=== PATIENT | female | born 1990 | race Caucasian/White ===

== ENCOUNTER 2017-10-28 20:00 | Inpatient (IN) | payer OTHER ==
[~2017-10-28] VITALS: Ht 160 cm; Wt 80.0 kg
[2017-10-28 21:43] VITALS: Ht 160 cm; Wt 80.0 kg
[2017-10-28 21:44] VITALS: BP 133/97; PULSE 102; RESP 16
[2017-10-28] MEDS ORDERED: METHYLERGONOVINE 0.2 MG INJ IM PRN (22:00)
[2017-10-28] MEDS ORDERED: MISOPROSTOL 200 MCG TAB PR PRN (22:00)
[2017-10-28] MEDS ORDERED: AMPICILLIN 2 GM/NS (PMX) 100 ML IV ONE (22:00)
[2017-10-28] MEDS ORDERED: IBUPROFEN 600 MG TAB PO PRN (22:00)
[2017-10-28] MEDS ORDERED: BUTORPHANOL 2 MG INJ IV PRN (22:00)
[2017-10-28] MEDS ORDERED: CARBOPROST 250 MCG INJ IM PRN (22:00)
[2017-10-28] MEDS ORDERED: OXYTOCIN 30 UNITS/LR 500 ML IV PRN (22:00)
[2017-10-28] MEDS ORDERED: LIDOCAINE 1% (MPF) 30 ML INJ INJ PRN (22:00)
[2017-10-28] MEDS ORDERED: OXYTOCIN 30 UNITS/LR 500 ML IV SCH ×2 (22:00)
[2017-10-28 22:02] LABS: BASOPHIL # 0.1 10^3/ul (0.0-0.1); BASOPHILS % 0.6 % (0.0-2.0); EOSINOPHILS # 0.3 10^3/ul (0.0-0.5); HEMOGLOBIN 12.1 g/dl (12.0-16.0); LYMPHOCYTES # 1.5 10^3/ul (0.8-2.9); LYMPHOCYTES % 16.8 % (15.0-51.0); MEAN CORPUSCULAR HGB CONC 33.6 g/dl (32.0-37.0); MEAN CORPUSCULAR VOLUME 92.3 fl (82.0-101.0); MEAN PLATELET VOLUME 12.8 fl (7.4-10.4); MONOCYTE # 0.7 10^3/ul (0.3-0.9); MONOCYTES % 8.3 % (0.0-11.0); NEUTROPHIL # 6.1 10^3/ul (1.6-7.5); NEUTROPHILS % 70.5 % (39.0-77.0); PLATELET COUNT 154 10^3/UL (140-415); RED CELL DISTRIBUTION WIDTH 13.6 % (11.5-14.5); WHITE BLOOD COUNT 8.6 10^3/ul (4.8-10.8)
[2017-10-28] MEDS: LACTATED RINGER'S 1,000 ML IV SCH (22:05)
[2017-10-28 22:06] LABS: INR 0.96; PROTIME 12.9 Sec (11.9-14.9)
[2017-10-28 22:07] LABS: PARTIAL THROMBOPLASTIN TIME 29.4 Sec (25.0-35.0)
[2017-10-28] MEDS ORDERED: DINOPROSTONE 10 MG VAG SUPP VAG ONE (22:30)
[2017-10-28 22:46] LABS: ALBUMIN 3.5 g/dl (3.3-4.9); ALBUMIN/GLOBULIN RATIO 0.97; BILIRUBIN,INDIRECT 0.1 mg/dl (0-1.1); BILIRUBIN,TOTAL 0.1 mg/dl (0.2-1.3); CALCIUM 9.7 mg/dl (8.4-10.2); CREATININE 0.76 mg/dl (0.44-1.00); TOTAL PROTEIN 7.1 g/dl (6.1-8.1); URIC ACID 5.3 mg/dl (3.1-7.9)
[2017-10-28 23:21] LABS: ADD UMIC YES; UR ASCORBIC ACID NEGATIVE (NEGATIVE); UR BACTERIA FEW /HPF (NONE SEEN); UR BILIRUBIN (Dip) NEGATIVE (NEGATIVE); UR BLOOD (Dip) 2+ mg/dL (NEGATIVE); UR CLARITY CLEAR (CLEAR); UR COLOR STRAW (YELLOW); UR GLUCOSE (Dip) NEGATIVE (NEGATIVE); UR KETONES (Dip) NEGATIVE (NEGATIVE); UR LEUKOCYTE ESTERASE (Dip) NEGATIVE Leu/ul (NEGATIVE); UR NITRITE (Dip) NEGATIVE (NEGATIVE); UR RBC 2 /HPF (0-5); UR SPECIFIC GRAVITY (Dip) 1.005 (1.003-1.030); UR TOTAL PROTEIN (Dip) NEGATIVE (NEGATIVE); UR UROBILINOGEN (Dip) NEGATIVE (NEGATIVE)
[2017-10-29] MEDS: AMPICILLIN 1 GM/NS (PMX) 50 ML IV SCH ×6 (02:28→21:46)
[2017-10-29] MEDS: LACTATED RINGER'S 1,000 ML IV SCH ×2 (06:26→19:19)
[2017-10-29] MEDS ORDERED: OXYTOCIN 30 UNITS/LR 500 ML IV SCH (11:30)
[2017-10-29] MEDS ORDERED: FENTAnyl 2MCG/ML-ROPIV 0.2% 100 ML ONE (15:20)
--- NOTE | 2017-10-29 18:26 | HP ---
Date/Time of Note Date/Time of Note DATE: 10/29/17 TIME: 18:11 OB - History Hx of Present Free Text/Dictation 26y.o A1(iab) at 39w1d for induction of labor.. VE 0.5/50%/-3 had unevenful course. GBS pos Chief Complaint: for induction Estimated Due Date: Nov 04, 2017 : 2 Para: 0 Spontaneous : 0 Therapeutic : 1 Care: Good Care Ultrasounds: Normal mid trimester US Obstetrical Complications: None Medical Complications: None Past Family/Social History * Past Medical, Surgical, Family and Obstetric Histories reviewed from chart. Blood Type: A+ Rubella: immune RPR/VDRL: Negative GBS Status: Positive HBsAG: Negative OB Admission Exam Vital Signs Vital Signs Vital Signs Date Time Temp Pulse Resp B/P Pulse Ox O2 Delivery O2 Flow Rate FiO2 10/28/17 21:44 97.7 102 16 133/97 Room Air Physical Exam HEENT: WNL Heart: Rhythm Normal Lungs: Clear, Equal Abdomen: WNL Extremities: Normal Reflexes: Normal Cervical Dilatation: Fingertip Effacement: 50% Station: -3 Membranes: Intact Amniotic Fluid: Unevaluable Heart Rate: 140's Accelerations: Accelerations Present Decelerations: No Decelerations Varibility: Moderate Contractions on Admission: None Last 72 hours Lab Results CBC & BMP 10/28/17 21:30 Liver Function Test 10/28/17 21:30 Alanine Aminotransferase (ALT/SGPT) 31 Albumin 3.5 Alkaline Phosphatase 237 H Aspartate Amino Transf (AST/SGOT) 26 Direct Bilirubin 0.00 Total Protein 7.1 OB Assessment/Plan Reason for admission: induction of labor Other Assessment: IUP 39w1d Plan: Induction Induction Method: per Misoprostol Protocol TERRY VAZQUEZ MD Oct 29, 2017 18:22
--- NOTE | 2017-10-29 18:27 | QN ---
Documentation Comment cx 2cm uc 3-5min x3 dose amp given epidural in TERRY VAZQUEZ MD Oct 29, 2017 18:27
[2017-10-29] MEDS ORDERED: ZOLPIDEM 5 MG TAB PO PRN (19:30)
[2017-10-29] MEDS ORDERED: ONDANSETRON 4 MG INJ IV PRN (19:30)
[2017-10-29] MEDS ORDERED: DIPHENHYDRAMINE 50 MG INJ IV PRN (19:30)
[2017-10-29] MEDS ORDERED: HYDROmorphONE 0.5 MG/0.5 ML SYG IV PRN ×2 (19:30)
[2017-10-29] MEDS ORDERED: KETOROLAC 30 MG INJ IV PRN (19:30)
[2017-10-29] MEDS ORDERED: FENTAnyl 2MCG/ML-ROPIV 0.2% 100 ML BAG EPI SCH (19:30)
[2017-10-29] MEDS ORDERED: NALOXONE (0.4 MG/ML) INJ IV PRN (19:30)
--- NOTE | 2017-10-30 01:52 | LDN ---
Date/Time of Note Date/Time of Note DATE: 10/30/17 TIME: 01:48 Delivery Summary of female infant with 2 vessel cord placenta to pathology Weeks of Gestation 39w1d Placenta Delivered: Spontaneously Meconium: none Episiotomy: No Perineal laceration: 2 Laceration repair: 00ch gut Anesthesia type: Local Estimated blood loss: 200 Sponge & Needle done & correct: Yes All needle counts correct: Yes Any foreign bodies felt in the: No Problems: Delivery Information Sex Sex: female Apgars 1 Minute: 9 5 Minute: 9 Suctioning Nose & mouth suctioned at buzz: Yes Delee suction performed: No Umbilical Cord Umbilical cord with: 2 Vessels Cord presentations: no nuchal cord Cord Blood was obtained: Yes Mother & Baby Disposition Disposition Mom & Baby to Maternity; Good: Yes Mom transferred to: Other Baby to NICU: No () TERRY VAZQUEZ MD Oct 30, 2017 01:52
[2017-10-30] MEDS: AMPICILLIN 1 GM/NS (PMX) 50 ML IV SCH (02:00)
[2017-10-30 03:30] VITALS: BP 139/79; PULSE 81; RESP 19
[2017-10-30 04:30] VITALS: BP 129/76; PULSE 89; RESP 19
[2017-10-30] MEDS ORDERED: METHYLERGONOVINE 0.2 MG INJ IM PRN (04:30)
[2017-10-30] MEDS ORDERED: ZOLPIDEM 5 MG TAB PO PRN (04:30)
[2017-10-30] MEDS ORDERED: MISOPROSTOL 200 MCG TAB PR PRN (04:30)
[2017-10-30] MEDS ORDERED: OXYTOCIN 30 UNITS/LR 500 ML IV PRN (04:30)
[2017-10-30] MEDS ORDERED: CARBOPROST 250 MCG INJ IM PRN (04:30)
[2017-10-30] MEDS ORDERED: OXYCODONE/ASPIRIN (4.88/325) TAB PO PRN ×2 (04:30)
[2017-10-30] MEDS: BENZOCAINE 20% 56 ML SPRAY TOP PRN (05:21)
[2017-10-30] MEDS: WITCH HAZEL/GLYCERIN PAD PR PRN (05:21)
[2017-10-30] MEDS: LANOLIN 7 GM TUBE TOP PRN (05:22)
[2017-10-30] MEDS: IBUPROFEN 600 MG TAB PO SCH ×4 (06:00→23:39)
[2017-10-30 08:30] VITALS: BP 111/68; PULSE 86; RESP 17
[2017-10-30] MEDS: SENNA/DOCUSATE NA (8.6MG/50MG) TAB PO SCH ×2 (08:37→21:24)
[2017-10-30 16:00] VITALS: BP 128/76; RESP 16
[2017-10-30 18:36] VITALS: BP 126/76; PULSE 77; RESP 77
[2017-10-30 19:40] VITALS: BP 124/74; PULSE 79; RESP 19
--- NOTE | 2017-10-30 23:04 | PN ---
Date/Time of Note Date/Time of Note DATE: 10/30/17 TIME: 23:03 OB Subjective Subjective Subjective no c/o OB Objective Objective Objective vss afebrile fundus firm lochia min calf neg for tenderness OB Assessment/Plan Other Assessment: stable post vag delivery Other plan: as ordered TERRY VAZQUEZ MD Oct 30, 2017 23:04
[2017-10-31 03:50] VITALS: BP 117/76; PULSE 89; RESP 19
[2017-10-31] MEDS: IBUPROFEN 600 MG TAB PO SCH ×3 (05:43→17:57)
[2017-10-31 08:45] VITALS: BP 138/88; PULSE 67; RESP 18
[2017-10-31] MEDS: SENNA/DOCUSATE NA (8.6MG/50MG) TAB PO SCH ×2 (08:46→21:28)
[2017-10-31 12:41] LABS: BASOPHIL # 0.1 10^3/ul (0.0-0.1); BASOPHILS % 0.5 % (0.0-2.0); EOSINOPHILS # 0.3 10^3/ul (0.0-0.5); HEMATOCRIT 35.8 % (37.0-47.0); HEMOGLOBIN 11.9 g/dl (12.0-16.0); LYMPHOCYTES # 1.4 10^3/ul (0.8-2.9); MEAN CORPUSCULAR HEMOGLOBIN 30.6 pg (29.0-33.0); MEAN CORPUSCULAR HGB CONC 33.2 g/dl (32.0-37.0); MEAN PLATELET VOLUME 12.2 fl (7.4-10.4); MONOCYTE # 0.5 10^3/ul (0.3-0.9); NEUTROPHIL # 7.8 10^3/ul (1.6-7.5); NEUTROPHILS % 76.8 % (39.0-77.0); PLATELET COUNT 165 10^3/UL (140-415); RED BLOOD COUNT 3.89 10^6/ul (4.20-5.40); WHITE BLOOD COUNT 10.2 10^3/ul (4.8-10.8)
[2017-10-31 15:25] VITALS: BP 117/70; PULSE 77; RESP 18
--- NOTE | 2017-10-31 16:34 | DS ---
Date/Time of Note Date/Time of Note DATE: 10/31/17 TIME: 16:30 Obstetrical Discharge Record Final Diagnosis Final Diagnosis: Term delivered Vaginal Delivery Obstetrical Delivery: Spontaneous, Laceration, Repaired Complications Rupture of Membranes: No Condition on Discharge Physical Assessment Last Vitals: vss afebrile Voiding: Yes Bowel Movement: No Breast: Soft, non-tender Fundus: Firm Calf Tenderness: No Patient Condition: Stable TERRY VAZQUEZ MD Oct 31, 2017 16:34
--- NOTE | 2017-10-31 16:37 | DS ---
Date/Time of Note Date/Time of Note DATE: 10/31/17 TIME: 16:36 Obstetrical Discharge Record Final Diagnosis Final Diagnosis: Term delivered Vaginal Delivery Obstetrical Delivery: Spontaneous, Laceration, Repaired Complications Induction: Yes Condition on Discharge Physical Assessment Last Vitals: vss afebrile Voiding: Yes Bowel Movement: No Breast: Soft, non-tender Fundus: Firm Calf Tenderness: No Patient Condition: Stable TERRY VAZQUEZ MD Oct 31, 2017 16:37
--- NOTE | 2017-10-31 16:38 | PD.PPDC ---
RECREATION CLERK Discharge Instruction Diagnosis Final Diagnosis: s/p Condition Patient Condition: Stable Diet Diet: Resume Regular Diet Activity/Restrictions Activity: May Shower Restrictions: No Lifting No Sexual Activity Nothing in the Vagina No [employer] No Tampons, douche Follow-up Follow-up with Physician: Week/Weeks Return to clinic for TIME BUYER Instructions: Fever greater than 101 Chills Worsening abdominal pain Excessive Vaginal Bleeding More than 2 pads per hour Unable to tolerate diet OB Instructions: Breast Tenderness Depression Blurried Vision Headache TERRY VAZQUEZ MD Oct 31, 2017 16:38
[2017-10-31 20:00] VITALS: BP 124/72; PULSE 90; RESP 18
[2017-11-01] MEDS: IBUPROFEN 600 MG TAB PO SCH ×2 (00:17→05:35)
[2017-11-01 04:00] VITALS: BP 124/82; PULSE 78; RESP 19
[2017-11-01 08:30] VITALS: BP 108/60; PULSE 82; RESP 18
[2017-11-01] MEDS ORDERED: DIPHTH/TET/ACEL PERTUSS (ADULT) 0.5 ML VIAL IM* ONE (09:00)
[2017-11-01] MEDS: WITCH HAZEL/GLYCERIN PAD PR PRN (09:35)
[2017-11-01] MEDS: LANOLIN 7 GM TUBE TOP PRN (09:36)
[2017-11-01] MEDS: BENZOCAINE 20% 56 ML SPRAY TOP PRN (09:36)
[2017-11-01] MEDS: SENNA/DOCUSATE NA (8.6MG/50MG) TAB PO SCH (09:37)
--- NOTE | 2017-11-01 09:59 | QN ---
Documentation Comment discharged for this am already but dropped by every thing ok TERRY VAZQUEZ MD Nov 01, 2017 09:59
== END 2017-11-01 14:09 | disposition home or self-care (01) | DRG 775 ==
LOC: L-D 21:16 → PP1 10-30 02:41
PROVIDERS: ADMIT Obstetrics & Gynecology; ATTEND Obstetrics & Gynecology
PROC: 10E0XZZ Delivery of Products of Conception, External Approach (ICD-10-PCS; principal; 2017-10-29)
PROC: 0KQM0ZZ Repair Perineum Muscle, Open Approach (ICD-10-PCS; 2017-10-29)
PROC: 3E033VJ Introduction of Other Hormone into Peripheral Vein, Percutaneous Approach (ICD-10-PCS; 2017-10-29)
DX: O70.1 Second degree perineal laceration during delivery (principal); Z37.0 Single live birth; Z3A.39 39 weeks gestation of pregnancy
CPT/HCPCS: 62319; 80053; 81001; 84560; 85025; 85610; 85730; 86592; 86900; 86901; 87340; 88307; 90715; J0290; J2590; J3010; J7120